=== PATIENT | female | born 1995 | race Caucasian/White ===

== ENCOUNTER → 2024-06-07 | Outpatient (CLI) | payer BC ==
[2024-06-07 11:05] LABS: Basophils # (auto) 0.1 10 ^3/uL (0-0.2); Basophils % (auto) 0.5 % (0.0-2.0); Eosinophils # (auto) 0 10 ^3/uL (0-0.8); Eosinophils % (auto) 0.4 % (0.0-7.0); Hematocrit 38.9 % (36.0-46.0); Hemoglobin 13.1 g/dL (12.2-16.2); Lymphocytes % (auto) 16.2 % (10.0-50.0); Mean Corpuscular Hemoglobin 30.1 pg (28.0-32.0); Mean Corpuscular Hgb Conc. 33.6 g/dL (32.0-36.0); Mean Corpuscular Volume 89.6 fL (80.0-100.0); Monocytes # (auto) 0.7 10 ^3/uL (0-1.3); Monocytes % (auto) 5.7 % (0.0-12.0); Neutrophils # (auto) 9.3 10 ^3/uL (1.6-8.6); Neutrophils % (auto) 77.2 % (37.0-80.0); Platelet Count (auto) 396 10^3/uL (140-450); Red Blood Cells 4.35 10^6/uL (4.0-5.20); Red Cell Distribution Width 13.1 % (11.8-14.3); White Blood Cell 12.1 10^3/uL (4.4-10.8)
[2024-06-07 11:49] LABS: Amphetamine Screen, Urine Neg (NEGATIVE)
[2024-06-07 11:50] LABS: Barbiturate Scree,Urine Neg (NEGATIVE)
[2024-06-07 11:52] LABS: Benzodiazephine Screen, Urine Neg (NEGATIVE); Cannabinoid Screen, Urine Neg (NEGATIVE); Cocaine Screen, Urine Neg (NEGATIVE); Opiate Scree,Urine Neg (NEGATIVE); Phencyclidine Screen, Urine Neg (NEGATIVE)
[2024-06-08 06:07] LABS: RPR Non Reactive (Non Reactive)
== END | disposition home or self-care (01) ==
LOC: LAB 10:22
PROVIDERS: ATTEND Obstetrics & Gynecology
DX: Z34.90 Encounter for supervision of normal pregnancy, unspecified, unspecified trimester (principal); Z72.51 High risk heterosexual behavior; Z3A.00 Weeks of gestation of pregnancy not specified
CPT/HCPCS: 36415; 80307; 83036; 84144; 84702; 85025; 86592; 86703; 86762; 86850; 86900; 86901; 87086; 87340

== ENCOUNTER 2025-01-02 18:20 | Inpatient (IN) | payer BC ==
[~2025-01-02] VITALS: Ht 160 cm; Wt 71.2 kg
[2025-01-02] MEDS ORDERED: LIDOCAINE 2%HCL (LOCAL ANESTH.) INJ 20ML MDV IJ PRN (19:15)
[2025-01-02] MEDS: LACTATED RINGER'S 1,000 ML IV SCH (20:00)
[2025-01-02 20:04] LABS: Hematocrit 36.7 % (36.0-46.0); Hemoglobin 12.6 g/dL (12.2-16.2); Mean Corpuscular Hemoglobin 31.1 pg (28.0-32.0); Mean Corpuscular Volume 90.6 fL (80.0-100.0); Nucleated Red Blood Cells % 0.0 %
[2025-01-02 20:24] LABS: INR 0.96 (0.9-1.15); Partial Thromboplastin Time 28.8 SEC (24.5-34.5); Prothrombin Time 10.2 sec (9.3-11.8)
[2025-01-02 20:29] LABS: Alanine Aminotransferase 10 U/L (7-40); Anion Gap 10 (5-15); BUN/Creatinine Ratio 10.7 (10.0-20.0); Calcium 9.5 mg/dL (8.7-10.4); Carbon Dioxide 26 mmol/L (20-31); Glucose 78 mg/dL (74-106); Potassium 4.0 mmol/L (3.5-5.1); Total Protein 7.1 g/dL (5.7-8.2)
[2025-01-02 20:30] LABS: Albumin 4.2 g/dL (3.2-4.8); Bilirubin, Total 0.3 mg/dL (0.2-1.0)
[2025-01-02 20:34] LABS: Alkaline Phosphatase 263 U/L (46-116); Blood Urea Nitrogen 6 mg/dL (9-23); Chloride 98 mmol/L (98-107); Sodium 134 mmol/L (136-145)
[2025-01-02 20:50] LABS: Urine Protein, UAD Negative (Negative)
[2025-01-02 21:05] LABS: Amphetamine Screen, Urine Neg (NEGATIVE); Barbiturate Scree,Urine Neg (NEGATIVE); Benzodiazephine Screen, Urine Neg (NEGATIVE); Cannabinoid Screen, Urine Neg (NEGATIVE); Cocaine Screen, Urine Neg (NEGATIVE); Opiate Scree,Urine Neg (NEGATIVE); Phencyclidine Screen, Urine Neg (NEGATIVE)
[2025-01-02] MEDS: DERMOPLAST 60ML BOTTLE TOP PRN (21:17)
[2025-01-02] MEDS: PHISODERM TOP SOLN 240ML BTL TOP PRN (21:17)
[2025-01-02] MEDS: WITCH HAZEL-GLYCERIN PAD TOP PRN (21:17)
[2025-01-02] MEDS: CALCIUM CARB 500 MG CHEW TAB PO PRN (21:39)
--- NOTE | 2025-01-02 21:49 | DVHHP2 ---
OB CC & HPI Date Date of Admission: Jan 02, 2025 Patient Identification: : 1 Para: 0 EDC: Dec 31, 2024 EGA: 40.2 Chief Complaints: Reason for admission: induction of labor Indication for induction: post dates History of Present Complaints 29yo IUP@40.2wks presents for scheduled IOL for post dates. Denies UC's/LOF/VB/DEGROOT/vision changes/RUQ pain. Endorses +FM. PNC: Routine PNC at [facility] OB by Dr. Sellers, adequate visits, uncomplicated GTT wnl, dating based on 10wk sono, GBS negative. OB hx: Denies Past Medical History Cardiac: No pertinent Hx Pulmonary: No pertinent Hx Central Nervous System: No pertinent Hx GI: No pertinent Hx Hemotology/Oncology: No pertinent Hx Hepatobiliary: No pertinent Hx Psychiatric: No pertinent Hx Musculoskeletal: No pertinent Hx Rheumotologic: No pertinent Hx Infectious Disease: No peritnent Hx ENT: No pertinent Hx Renal/: No pertinent Hx Endocrine: No pertinent Hx Dermatology: No pertinent Hx Past Surgical History: No pertinent Hx OB History OB History Care: Good Care Ultrasounds: Normal mid trimester US Obstetrical Complications: None Medical Complications: None Allergies: Coded Allergies: NO KNOWN ALLERGIES (Unverified , 01/02/25) Home Meds PNV Current Medications Current Medications Medications (Trade) Dose Ordered Sig/Gabrielle Route PRN Reason Start Time Stop Time Status Last Admin Lactated Ringer's 1,000 ml @ 125 mls/hr Q8H IV 01/02/25 19:15 Witch Pretty (Tucks) 1 pad PRN PRN TOP PERINEAL AREA DISCOMFORT 01/02/25 19:15 01/02/25 21:17 Sodium Lauryl Sulfate (Phisoderm) 240 ml PRN PRN TOP PERINEAL AREA DISCOMFORT 01/02/25 19:15 01/02/25 21:17 Benzocaine (Dermoplast) 1 applic PRN PRN TOP PERINEAL AREA DISCOMFORT 01/02/25 19:15 01/02/25 21:17 Lidocaine HCl (Xylocaine) 40 ml ONCE PRN IJ PERINEAL AREA DISCOMFORT 01/02/25 19:15 Misoprostol (Cytotec) 50 mcg Q4HPRN PRN PO CERVICAL RIPENING 01/02/25 20:30 01/02/25 21:16 Famotidine (Pepcid Injection) 20 mg Q12HR PRN IV FOR STOMACH DISTRESS 01/02/25 21:15 Calcium Carbonate (Tums) 1,000 mg Q6HP PRN PO FOR STOMACH DISTRESS 01/02/25 21:15 Family & Social History Family/Social History Past Family/Social History: Denies Blood Type: A+ Rubella: immune RPR/VDRL: Negative GBS Status: Negative HBsAG: Negative Review of Systems Constitutional: No symptom reported Ears, Nose, & Throat: No symptom reported Eyes: No symptom reported Pulmonary/Respiratory: No symptom reported Cardiovascular: No symptom reported Gastrointestinal: No symptom reported Genitourinary: No symptom reported Musculoskeletal: No symptom reported Skin: No symptom reported Psychiatric: No symptom reported Endocrine: No symptom reported Hemotologic/Lymphatic: No symptom reported OB Admission Exam Physical Exam Vitals: VSS - See CPN EFW 8lb 9oz, in OB clinic today SVE - Ft/thick/high by RN HEENT: TMs Normal, Fontanelles Normal, Nasal Mucosa Normal, Eyes non-injected, Oropharynx Normal, PERRLA, Moist Membranes, EOMI Heart: Rhythm Normal Lungs: Clear Abdomen: Gravid Extremities: Normal Reflexes: Normal Membranes: Intact Heart Rate: 120's Accelerations: Accelerations Present Decelerations: No Decelerations Business Process Consultant Variability: Average (6-25) Contractions on Admission: 6-10 Minutes Apart Frequency of Contractions: Q6-7min Duration: 100 Intensity: Mild OB Plan Plan Admitting Diagnosis: Induction of Labor Plan: Induction Induction Methd: Misoprostol protocol Other Plan: A: 29yo IUP@40.2wks Induction of Labor for post dates Category I EFM Intact Membranes GBS negative P: Admit to L&D Informed consent obtained Discussed risks, benefits, alternatives of IOL for post dates with pt. Pt consents to IOL with cytotec. monitoring per order Routine labs ordered Pain mgmt PRN Frequent position changes in and out of bed encouraged Limit SVE unless necessary Intrauterine resuscitation PRN Anticipate CNM will consult with Dr. Sellers PRN Visit Coding OBGYN Date of Service: Jan 02, 2025 Billing Provider: CELE BOWMAN CNM WATER PROJECT MANAGER Common Visit Codes: [id number] OBS CARE (MOD) WATER PROJECT MANAGER Procedure Codes: 59149-41- NON-STRESS TEST JENIFER SILVESTRE STUDENTMDW Jan 02, 2025 21:49
[2025-01-03] MEDS: FAMOTIDINE (10MG/ML) 2ML VL IV PRN (00:39)
--- NOTE | 2025-01-03 06:56 | DVHPN2 ---
Chief Complaints Patient reports: No new complaints Nursing reports: No new complaints Objective Medications Current Medications Medications (Trade) Dose Ordered Sig/Gabrielle Route PRN Reason Start Time Stop Time Status Last Admin Benzocaine (Dermoplast) 1 applic PRN PRN TOP PERINEAL AREA DISCOMFORT 01/02/25 19:15 01/02/25 21:17 Calcium Carbonate (Tums) 1,000 mg Q6HP PRN PO FOR STOMACH DISTRESS 01/02/25 21:15 01/03/25 03:13 Famotidine (Pepcid Injection) 20 mg Q12HR PRN IV FOR STOMACH DISTRESS 01/02/25 21:15 01/03/25 00:39 Lactated Ringer's 1,000 ml @ 125 mls/hr Q8H IV 01/02/25 19:15 01/02/25 20:00 Lidocaine HCl (Xylocaine) 40 ml ONCE PRN IJ PERINEAL AREA DISCOMFORT 01/02/25 19:15 Misoprostol (Cytotec) 50 mcg Q4HPRN PRN PO CERVICAL RIPENING 01/02/25 20:30 01/03/25 05:15 Sodium Lauryl Sulfate (Phisoderm) 240 ml PRN PRN TOP PERINEAL AREA DISCOMFORT 01/02/25 19:15 01/02/25 21:17 Witch Pretty (Tucks) 1 pad PRN PRN TOP PERINEAL AREA DISCOMFORT 01/02/25 19:15 01/02/25 21:17 Others ve-1cm/50/-2 Studies Laboratory Tests 01/02/25 19:24 Test 01/02/25 19:24 Range/Units Serum Glucose 78 74-106 mg/dL Ass/Plan Assessment iol for postdates Plan rec 2 cytotec Visit Coding OBGYN Date of Service: Jan 03, 2025 Billing Provider: RAZ GUADARRAMA DO JAVA DESIGNER Common Visit Codes: [id number] INP/OBS CARE (HIGH) JAVA DESIGNER Procedure Codes: 54475-54- NON-STRESS TEST RAZ GUADARRAMA DO Jan 03, 2025 06:56
[2025-01-03] MEDS: LACT. RINGERS/OXYTOCIN 20UNITS 500 ML IV ONE ×2 (07:00→07:30)
--- NOTE | 2025-01-03 09:56 | DVHPN2 ---
Chief Complaints Patient reports: No new complaints Nursing reports: No new complaints Objective Medications Current Medications Medications (Trade) Dose Ordered Sig/Gabrielle Route PRN Reason Start Time Stop Time Status Last Admin Benzocaine (Dermoplast) 1 applic PRN PRN TOP PERINEAL AREA DISCOMFORT 01/02/25 19:15 01/02/25 21:17 Calcium Carbonate (Tums) 1,000 mg Q6HP PRN PO FOR STOMACH DISTRESS 01/02/25 21:15 01/03/25 03:13 Famotidine (Pepcid Injection) 20 mg Q12HR PRN IV FOR STOMACH DISTRESS 01/02/25 21:15 01/03/25 00:39 Lactated Ringer's 1,000 ml @ 125 mls/hr Q8H IV 01/02/25 19:15 01/02/25 20:00 Lidocaine HCl (Xylocaine) 40 ml ONCE PRN IJ PERINEAL AREA DISCOMFORT 01/02/25 19:15 Misoprostol (Cytotec) 50 mcg Q4HPRN PRN PO CERVICAL RIPENING 01/02/25 20:30 01/03/25 09:16 Sodium Lauryl Sulfate (Phisoderm) 240 ml PRN PRN TOP PERINEAL AREA DISCOMFORT 01/02/25 19:15 01/02/25 21:17 Witch Pretty (Tucks) 1 pad PRN PRN TOP PERINEAL AREA DISCOMFORT 01/02/25 19:15 01/02/25 21:17 Others ve-1cm/70/-2 Studies Laboratory Tests 01/02/25 19:24 Test 01/02/25 19:24 Range/Units Serum Glucose 78 74-106 mg/dL Ass/Plan Assessment iol for postdates Plan cont with cytotec Visit Coding OBGYN Date of Service: Jan 03, 2025 Billing Provider: RAZ GUADARRAMA DO SUPERVISOR COIN MACHINE Common Visit Codes: [id number] INP/OBS CARE(MOD), [id number] INP/OBS CARE(HIGH) SUPERVISOR COIN MACHINE Procedure Codes: 44377-64- NON-STRESS TEST RAZ GUADARRAMA DO Jan 03, 2025 09:56
[2025-01-03] MEDS: NALOXONE HCL 0.4 MG/ML VIAL IV ONE (12:30)
[2025-01-03] MEDS: ROPIVACAINE HCL 100 ML ONE ×2 (13:11→20:32)
--- NOTE | 2025-01-03 13:37 | DVHPN2 ---
Chief Complaints Patient reports: No new complaints Nursing reports: No new complaints Objective Medications Current Medications Medications (Trade) Dose Ordered Sig/Gabrielle Route PRN Reason Start Time Stop Time Status Last Admin Benzocaine (Dermoplast) 1 applic PRN PRN TOP PERINEAL AREA DISCOMFORT 01/02/25 19:15 01/02/25 21:17 Calcium Carbonate (Tums) 1,000 mg Q6HP PRN PO FOR STOMACH DISTRESS 01/02/25 21:15 01/03/25 03:13 Famotidine (Pepcid Injection) 20 mg Q12HR PRN IV FOR STOMACH DISTRESS 01/02/25 21:15 01/03/25 00:39 Lactated Ringer's 1,000 ml @ 125 mls/hr Q8H IV 01/02/25 19:15 01/03/25 13:10 Lidocaine HCl (Xylocaine) 40 ml ONCE PRN IJ PERINEAL AREA DISCOMFORT 01/02/25 19:15 Misoprostol (Cytotec) 50 mcg Q4HPRN PRN PO CERVICAL RIPENING 01/02/25 20:30 01/03/25 13:30 Sodium Lauryl Sulfate (Phisoderm) 240 ml PRN PRN TOP PERINEAL AREA DISCOMFORT 01/02/25 19:15 01/02/25 21:17 Witch Pretty (Tucks) 1 pad PRN PRN TOP PERINEAL AREA DISCOMFORT 01/02/25 19:15 01/02/25 21:17 Others ve- 1cm/70/-2 Studies Laboratory Tests 01/02/25 19:24 Test 01/02/25 19:24 Range/Units Serum Glucose 78 74-106 mg/dL Ass/Plan Assessment iol for postdates Plan rec 4 cytotec will give one more rec epidural Visit Coding OBGYN Date of Service: Jan 03, 2025 Billing Provider: RAZ GUADARRAMA DO BUILD AND RELEASE MANAGER Common Visit Codes: [id number] INP/OBS CARE (HIGH) BUILD AND RELEASE MANAGER Procedure Codes: 79175-86- NON-STRESS TEST RAZ GUADARRAMA DO Jan 03, 2025 13:37
--- NOTE | 2025-01-03 16:08 | DVHPN2 ---
OB Labor Progress Note Date and Time Seen Date Seen: Jan 03, 2025 Time Seen: 15:40 Subjective Patient reports: No new complaints Subjective Comment 29 yo @ 40.3 wk, feeling better with epidural and agree to cook balloon placement. Objective Vital Signs VSS see CPN Monitoring Method Monitoring Method: Internal Heart Rate Heart Rate Baseline: 140 Heart Rate Variability: Moderate Presence of FHR Accelerations: Yes Presence of FHR Decelerations: Yes Heart Rate Type of Decel: Late Decelerations ( decel while balloon was being placed) Changes in Trends of Patterns: No Are all 5 Components of the FH: No Contractions Contractions Frequency: Occasional (3/10, 70-100) Duration of Contraction: 70 Contractions Intensity: Mild Contractions Resting Tone: Relaxed Membranes Membranes: Intact Vaginal Exam Vag Exam Deferred: No Vaginal Exam Dilation: 1 Vaginal Exam Effacement: 70 Vaginal Exam Station: -2 Vaginal Exam Presentation: VTX Vaginal Exam Show: Small Medications Medications - Pitocin: No Medication - Epidural: Yes Medication - Other s/p cytotec x 5 Lab Results Lab Results Current Medications Medications (Trade) Dose Ordered Sig/Gabrielle Start Time Stop Time Status Last Admin Dose Admin Lactated Ringer's 1,000 ml @ 125 mls/hr Q8H 01/02/25 19:15 01/03/25 13:36 125 MLS/HR Jose Bakerel (Tucks) 1 pad PRN PRN 01/02/25 19:15 01/02/25 21:17 1 PAD Sodium Lauryl Sulfate (Phisoderm) 240 ml PRN PRN 01/02/25 19:15 01/02/25 21:17 240 ML Benzocaine (Dermoplast) 1 applic PRN PRN 01/02/25 19:15 01/02/25 21:17 1 APPLIC Lidocaine HCl (Xylocaine) 40 ml ONCE PRN 01/02/25 19:15 Oxytocin 500 ml @ 999 mls/hr Q31M ONCE 01/03/25 07:00 01/03/25 07:30 DC Oxytocin 500 ml @ 125 mls/hr Q4H ONCE 01/03/25 07:30 01/03/25 11:29 DC Misoprostol (Cytotec) 50 mcg Q4HPRN PRN 01/02/25 20:30 01/03/25 13:30 50 MCG Famotidine (Pepcid Injection) 20 mg Q12HR PRN 01/02/25 21:15 01/03/25 00:39 20 MG Calcium Carbonate (Tums) 1,000 mg Q6HP PRN 01/02/25 21:15 01/03/25 03:13 1,000 MG Naloxone HCl (Narcan) 0.2 mg PRN ONCE 01/03/25 12:30 01/03/25 12:47 DC Ephedrine Sulfate (ePHEDrine SULFATE) 10 mg PRN ONCE 01/03/25 12:30 01/03/25 12:47 DC Oxytocin 1,000 ml @ 6 ml/hr Q24H 01/03/25 16:45 Terbutaline Sulfate (Brethine Inj) 0.25 mg ONCE PRN 01/03/25 16:45 Ondansetron HCl (Zofran) 4 mg Q4HPRN PRN 01/03/25 17:15 01/03/25 17:25 4 MG Laboratory Tests Test 01/02/25 19:24 01/02/25 19:07 Range/Units White Blood Count 15.7 H 4.4-10.8 10^3/uL Red Blood Count 4.05 4.0-5.20 10^6/uL Hemoglobin 12.6 12.2-16.2 g/dL Hematocrit 36.7 36.0-46.0 % Mean Corpuscular Volume 90.6 80.0-100.0 fL Mean Corpuscular Hemoglobin 31.1 28.0-32.0 pg Mean Corpuscular Hemoglobin Concent 34.3 32.0-36.0 g/dL Red Cell Distribution Width 13.0 11.8-14.3 % Platelet Count 303 140-450 10^3/uL Mean Platelet Volume 7.7 6.9-10.8 fL Neutrophils (%) (Auto) 75.7 37.0-80.0 % Lymphocytes (%) (Auto) 17.8 10.0-50.0 % Monocytes (%) (Auto) 5.9 0.0-12.0 % Eosinophils (%) (Auto) 0.3 0.0-7.0 % Basophils (%) (Auto) 0.3 0.0-2.0 % Neutrophils # (Auto) 11.9 H 1.6-8.6 10 ^3/uL Lymphocytes # (Auto) 2.8 0.4-5.4 10 ^3/uL Monocytes # (Auto) 0.9 0-1.3 10 ^3/uL Eosinophils # (Auto) 0.1 0-0.8 10 ^3/uL Basophils # (Auto) 0 0-0.2 10 ^3/uL Nucleated Red Blood Cells 0.0 % Prothrombin Time 10.2 9.3-11.8 sec Prothrombin Time INR 0.96 0.9-1.15 Activated Partial Thromboplast Time 28.8 24.5-34.5 SEC Sodium Level 134 L 136-145 mmol/L Potassium Level 4.0 3.5-5.1 mmol/L Chloride Level 98 98-107 mmol/L Carbon Dioxide Level 26 20-31 mmol/L Anion Gap 10 5-15 Blood Urea Nitrogen 6 L 9-23 mg/dL Creatinine 0.56 0.550-1.02 mg/dL Glomerular Filtration Rate Calc 125 >90 mL/min BUN/Creatinine Ratio 10.7 10.0-20.0 Serum Glucose 78 74-106 mg/dL Calcium Level 9.5 8.7-10.4 mg/dL Total Bilirubin 0.3 0.2-1.0 mg/dL Aspartate Amino Transferase (AST) 24 13-40 U/L Alanine Aminotransferase (ALT) 10 7-40 U/L Alkaline Phosphatase 263 H 46-116 U/L Total Protein 7.1 5.7-8.2 g/dL Albumin 4.2 3.2-4.8 g/dL Treponema pallidum Antibody Non-reactive Negative Hepatitis C Antibody Negative Negative Urine Color Colorless Yellow Urine Clarity Clear Clear Urine pH 5.5 5.0-9.0 Urine Specific [place] 1.008 1.001-1.035 Urine Protein Negative Negative Urine Ketones 1+ H Negative Urine Blood Negative Negative /uL Urine Nitrite Negative Negative Urine Bilirubin Negative Negative Urine Urobilinogen Normal Negative mg/dL Urine Leukocyte Esterase Negative Negative /uL Urine RBC 1 0 - 4 /hpf Urine Microscopic WBC 1 0-5 /HPF Urine Squamous Epithelial Cells Few <5 /hpf Urine Bacteria None seen None Seen /hpf Urine Glucose Normal Normal mg/dL Urine Opiates Screen Neg NEGATIVE Urine Fentanyl Screen Neg NEGATIVE Urine Barbiturates Screen Neg NEGATIVE Urine Phencyclidine Screen Neg NEGATIVE Urine Amphetamines Screen Neg NEGATIVE Urine Benzodiazepines Screen Neg NEGATIVE Urine Cocaine Screen Neg NEGATIVE Urine Cannabinoids Screen Neg NEGATIVE Assessment Assessment A: 29yo at 40.3 wk IOL for Postdates GBS negative Cat 2 strip Intact membranes Plan Plan P: monitoring per order IV pitocin after 4 hours post cytotec Remove cook balloon after 12 hours or prior if SROM or spontaneously falls out Intrauterine resuscitation PRN Encourage frequent position changes in bed Plan discussed with: Patient, Spouse Visit Coding OBGYN Date of Service: Jan 03, 2025 Billing Provider: CELE BOWMAN CNM GLUE REEL OPERATOR Common Visit Codes: [id number] INP/OBS CARE(MOD) MARIO BROWN Jan 03, 2025 16:08
[2025-01-03] MEDS ORDERED: TERBUTALINE SULFATE 1 MG/ML 1ML VIAL SC PRN (16:45)
[2025-01-03] MEDS: ONDANSETRON HCL 4 MG/2 ML VIAL IV PRN (17:25)
--- NOTE | 2025-01-03 20:10 | DVHPN2 ---
OB Labor Progress Note Date and Time Seen Date Seen: Jan 03, 2025 Time Seen: 19:35 Subjective Patient reports: No new complaints Subjective Comment 29yo @ 40.3wk, feels warm, ice pack under arm and between thigh, epidural in place Objective Vital Signs VSS see CPN Monitoring Method Monitoring Method: External Heart Rate Heart Rate Baseline: 145 Heart Rate Variability: Moderate Presence of FHR Accelerations: Yes Presence of FHR Decelerations: No Are all 5 Components of the FH: No Contractions Contractions Frequency: Occasional (1-3/10) Duration of Contraction: 80 Contractions Intensity: Moderate Contractions Resting Tone: Relaxed Membranes Membranes: Intact Vaginal Exam Vag Exam Deferred: No Vaginal Exam Dilation: 5 Vaginal Exam Effacement: 70 Vaginal Exam Station: -2 Vaginal Exam Presentation: VTX Vaginal Exam Show: Small Medications Medications - Pitocin: No Medication - Epidural: Yes Medication - Other s/p PO cytotec x 5 Lab Results Lab Results Current Medications Medications (Trade) Dose Ordered Sig/Gabrielle Start Time Stop Time Status Last Admin Dose Admin Lactated Ringer's 1,000 ml @ 125 mls/hr Q8H 01/02/25 19:15 01/03/25 13:36 125 MLS/HR Witch Pretty (Tucks) 1 pad PRN PRN 01/02/25 19:15 01/02/25 21:17 1 PAD Sodium Lauryl Sulfate (Phisoderm) 240 ml PRN PRN 01/02/25 19:15 01/02/25 21:17 240 ML Benzocaine (Dermoplast) 1 applic PRN PRN 01/02/25 19:15 01/02/25 21:17 1 APPLIC Lidocaine HCl (Xylocaine) 40 ml ONCE PRN 01/02/25 19:15 Oxytocin 500 ml @ 999 mls/hr Q31M ONCE 01/03/25 07:00 01/03/25 07:30 DC Oxytocin 500 ml @ 125 mls/hr Q4H ONCE 01/03/25 07:30 01/03/25 11:29 DC Misoprostol (Cytotec) 50 mcg Q4HPRN PRN 01/02/25 20:30 01/03/25 13:30 50 MCG Famotidine (Pepcid Injection) 20 mg Q12HR PRN 01/02/25 21:15 01/03/25 00:39 20 MG Calcium Carbonate (Tums) 1,000 mg Q6HP PRN 01/02/25 21:15 01/03/25 03:13 1,000 MG Naloxone HCl (Narcan) 0.2 mg PRN ONCE 01/03/25 12:30 01/03/25 12:47 DC Ephedrine Sulfate (ePHEDrine SULFATE) 10 mg PRN ONCE 01/03/25 12:30 01/03/25 12:47 DC Oxytocin 1,000 ml @ 6 ml/hr Q24H 01/03/25 16:45 Terbutaline Sulfate (Brethine Inj) 0.25 mg ONCE PRN 01/03/25 16:45 Ondansetron HCl (Zofran) 4 mg Q4HPRN PRN 01/03/25 17:15 01/03/25 17:25 4 MG Acetaminophen (Tylenol Tablet Or Capsule) 1,000 mg Q8HP PRN 01/03/25 19:45 UNV Laboratory Tests Test 01/02/25 19:24 01/02/25 19:07 Range/Units White Blood Count 15.7 H 4.4-10.8 10^3/uL Red Blood Count 4.05 4.0-5.20 10^6/uL Hemoglobin 12.6 12.2-16.2 g/dL Hematocrit 36.7 36.0-46.0 % Mean Corpuscular Volume 90.6 80.0-100.0 fL Mean Corpuscular Hemoglobin 31.1 28.0-32.0 pg Mean Corpuscular Hemoglobin Concent 34.3 32.0-36.0 g/dL Red Cell Distribution Width 13.0 11.8-14.3 % Platelet Count 303 140-450 10^3/uL Mean Platelet Volume 7.7 6.9-10.8 fL Neutrophils (%) (Auto) 75.7 37.0-80.0 % Lymphocytes (%) (Auto) 17.8 10.0-50.0 % Monocytes (%) (Auto) 5.9 0.0-12.0 % Eosinophils (%) (Auto) 0.3 0.0-7.0 % Basophils (%) (Auto) 0.3 0.0-2.0 % Neutrophils # (Auto) 11.9 H 1.6-8.6 10 ^3/uL Lymphocytes # (Auto) 2.8 0.4-5.4 10 ^3/uL Monocytes # (Auto) 0.9 0-1.3 10 ^3/uL Eosinophils # (Auto) 0.1 0-0.8 10 ^3/uL Basophils # (Auto) 0 0-0.2 10 ^3/uL Nucleated Red Blood Cells 0.0 % Prothrombin Time 10.2 9.3-11.8 sec Prothrombin Time INR 0.96 0.9-1.15 Activated Partial Thromboplast Time 28.8 24.5-34.5 SEC Sodium Level 134 L 136-145 mmol/L Potassium Level 4.0 3.5-5.1 mmol/L Chloride Level 98 98-107 mmol/L Carbon Dioxide Level 26 20-31 mmol/L Anion Gap 10 5-15 Blood Urea Nitrogen 6 L 9-23 mg/dL Creatinine 0.56 0.550-1.02 mg/dL Glomerular Filtration Rate Calc 125 >90 mL/min BUN/Creatinine Ratio 10.7 10.0-20.0 Serum Glucose 78 74-106 mg/dL Calcium Level 9.5 8.7-10.4 mg/dL Total Bilirubin 0.3 0.2-1.0 mg/dL Aspartate Amino Transferase (AST) 24 13-40 U/L Alanine Aminotransferase (ALT) 10 7-40 U/L Alkaline Phosphatase 263 H 46-116 U/L Total Protein 7.1 5.7-8.2 g/dL Albumin 4.2 3.2-4.8 g/dL Treponema pallidum Antibody Non-reactive Negative Hepatitis C Antibody Negative Negative Urine Color Colorless Yellow Urine Clarity Clear Clear Urine pH 5.5 5.0-9.0 Urine Specific [place] 1.008 1.001-1.035 Urine Protein Negative Negative Urine Ketones 1+ H Negative Urine Blood Negative Negative /uL Urine Nitrite Negative Negative Urine Bilirubin Negative Negative Urine Urobilinogen Normal Negative mg/dL Urine Leukocyte Esterase Negative Negative /uL Urine RBC 1 0 - 4 /hpf Urine Microscopic WBC 1 0-5 /HPF Urine Squamous Epithelial Cells Few <5 /hpf Urine Bacteria None seen None Seen /hpf Urine Glucose Normal Normal mg/dL Urine Opiates Screen Neg NEGATIVE Urine Fentanyl Screen Neg NEGATIVE Urine Barbiturates Screen Neg NEGATIVE Urine Phencyclidine Screen Neg NEGATIVE Urine Amphetamines Screen Neg NEGATIVE Urine Benzodiazepines Screen Neg NEGATIVE Urine Cocaine Screen Neg NEGATIVE Urine Cannabinoids Screen Neg NEGATIVE Assessment Assessment A: 29yo, @ 40.3wk IOL for postdates Intact Membranes GBS negative Plan Plan P: monitoring per order IV pitocin to be started when UC spaces out, pt agrees with POC Intrauterine resuscitation PRN Limit SVE unless necessary Frequent position changes in bed encouraged Plan discussed with: Patient, Spouse Visit Coding OBGYN Date of Service: Jan 03, 2025 Billing Provider: CELE BOWMAN CNM KNIFE SETTER Common Visit Codes: [id number] INP/OBS CARE(MOD) MARIO BROWN Jan 03, 2025 20:10
[2025-01-03] MEDS: ACETAMINOPHEN 500 MG TAB or CAP PO PRN (20:23)
[2025-01-03] MEDS: LACT. RINGERS/OXYTOCIN 20UNITS 1,000 ML IV SCH (20:46)
[2025-01-04] VITALS (11 sets, daily range): BP systolic 96–112; BP diastolic 1–74; PULSE 95–119; RESP 14–26; TEMP 98.8–100.4; O2SAT 7–100
--- NOTE | 2025-01-04 01:15 | DVHPN2 ---
OB Labor Progress Note Date and Time Seen Date Seen: Jan 03, 2025 Time Seen: 23:30 Subjective Patient reports: No new complaints (temp getting better) Objective Vital Signs VSS see CPN Monitoring Method Monitoring Method: External Heart Rate Heart Rate Baseline: 135 Heart Rate Variability: Moderate Presence of FHR Accelerations: Yes Presence of FHR Decelerations: Yes ( decel when pt repositions) Changes in Trends of Patterns: No Are all 5 Components of the FH: No Contractions Contractions Frequency: Occasional (1.5-4/10) Duration of Contraction: 80 Contractions Intensity: Moderate Contractions Resting Tone: Relaxed Membranes Membranes: Intact, Bulging Vaginal Exam Vag Exam Deferred: No Vaginal Exam Dilation: 6 Vaginal Exam Effacement: 70 Vaginal Exam Station: -2 Vaginal Exam Presentation: VTX Vaginal Exam Show: Small Medications Medications - Pitocin: No (pitocin stopped) Medication - Epidural: Yes Medication - Other s/p PO cytotec x 5 Lab Results Lab Results Vital Signs Date Time Temp Pulse Resp B/P (MAP) Pulse Ox O2 Delivery O2 Flow Rate FiO2 01/03/25 20:23 100.3 Current Medications Medications (Trade) Dose Ordered Sig/Gabrielle Start Time Stop Time Status Last Admin Dose Admin Lactated Ringer's 1,000 ml @ 125 mls/hr Q8H 01/02/25 19:15 01/03/25 13:36 125 MLS/HR Witch Pretty (Tucks) 1 pad PRN PRN 01/02/25 19:15 01/02/25 21:17 1 PAD Sodium Lauryl Sulfate (Phisoderm) 240 ml PRN PRN 01/02/25 19:15 01/02/25 21:17 240 ML Benzocaine (Dermoplast) 1 applic PRN PRN 01/02/25 19:15 01/02/25 21:17 1 APPLIC Lidocaine HCl (Xylocaine) 40 ml ONCE PRN 01/02/25 19:15 Oxytocin 500 ml @ 999 mls/hr Q31M ONCE 01/03/25 07:00 01/03/25 07:30 DC Oxytocin 500 ml @ 125 mls/hr Q4H ONCE 01/03/25 07:30 01/03/25 11:29 DC Misoprostol (Cytotec) 50 mcg Q4HPRN PRN 01/02/25 20:30 01/03/25 13:30 50 MCG Famotidine (Pepcid Injection) 20 mg Q12HR PRN 01/02/25 21:15 01/03/25 00:39 20 MG Calcium Carbonate (Tums) 1,000 mg Q6HP PRN 01/02/25 21:15 01/03/25 03:13 1,000 MG Naloxone HCl (Narcan) 0.2 mg PRN ONCE 01/03/25 12:30 01/03/25 12:47 DC Ephedrine Sulfate (ePHEDrine SULFATE) 10 mg PRN ONCE 01/03/25 12:30 01/03/25 12:47 DC Oxytocin 1,000 ml @ 6 ml/hr Q24H 01/03/25 16:45 01/03/25 20:46 6 ML/HR Terbutaline Sulfate (Brethine Inj) 0.25 mg ONCE PRN 01/03/25 16:45 Ondansetron HCl (Zofran) 4 mg Q4HPRN PRN 01/03/25 17:15 01/03/25 17:25 4 MG Acetaminophen (Tylenol Tablet Or Capsule) 1,000 mg Q8HP PRN 01/03/25 19:45 01/03/25 20:23 1,000 MG Cefazolin Sodium/ Dextrose 50 ml @ 50 mls/hr ONCE ONCE 01/04/25 00:45 01/04/25 01:44 Cefazolin Sodium 50 ml @ 100 mls/hr Q8HR 01/04/25 09:00 Laboratory Tests Test 01/02/25 19:24 01/02/25 19:07 Range/Units White Blood Count 15.7 H 4.4-10.8 10^3/uL Red Blood Count 4.05 4.0-5.20 10^6/uL Hemoglobin 12.6 12.2-16.2 g/dL Hematocrit 36.7 36.0-46.0 % Mean Corpuscular Volume 90.6 80.0-100.0 fL Mean Corpuscular Hemoglobin 31.1 28.0-32.0 pg Mean Corpuscular Hemoglobin Concent 34.3 32.0-36.0 g/dL Red Cell Distribution Width 13.0 11.8-14.3 % Platelet Count 303 140-450 10^3/uL Mean Platelet Volume 7.7 6.9-10.8 fL Neutrophils (%) (Auto) 75.7 37.0-80.0 % Lymphocytes (%) (Auto) 17.8 10.0-50.0 % Monocytes (%) (Auto) 5.9 0.0-12.0 % Eosinophils (%) (Auto) 0.3 0.0-7.0 % Basophils (%) (Auto) 0.3 0.0-2.0 % Neutrophils # (Auto) 11.9 H 1.6-8.6 10 ^3/uL Lymphocytes # (Auto) 2.8 0.4-5.4 10 ^3/uL Monocytes # (Auto) 0.9 0-1.3 10 ^3/uL Eosinophils # (Auto) 0.1 0-0.8 10 ^3/uL Basophils # (Auto) 0 0-0.2 10 ^3/uL Nucleated Red Blood Cells 0.0 % Prothrombin Time 10.2 9.3-11.8 sec Prothrombin Time INR 0.96 0.9-1.15 Activated Partial Thromboplast Time 28.8 24.5-34.5 SEC Sodium Level 134 L 136-145 mmol/L Potassium Level 4.0 3.5-5.1 mmol/L Chloride Level 98 98-107 mmol/L Carbon Dioxide Level 26 20-31 mmol/L Anion Gap 10 5-15 Blood Urea Nitrogen 6 L 9-23 mg/dL Creatinine 0.56 0.550-1.02 mg/dL Glomerular Filtration Rate Calc 125 >90 mL/min BUN/Creatinine Ratio 10.7 10.0-20.0 Serum Glucose 78 74-106 mg/dL Calcium Level 9.5 8.7-10.4 mg/dL Total Bilirubin 0.3 0.2-1.0 mg/dL Aspartate Amino Transferase (AST) 24 13-40 U/L Alanine Aminotransferase (ALT) 10 7-40 U/L Alkaline Phosphatase 263 H 46-116 U/L Total Protein 7.1 5.7-8.2 g/dL Albumin 4.2 3.2-4.8 g/dL Treponema pallidum Antibody Non-reactive Negative Hepatitis C Antibody Negative Negative Urine Color Colorless Yellow Urine Clarity Clear Clear Urine pH 5.5 5.0-9.0 Urine Specific [place] 1.008 1.001-1.035 Urine Protein Negative Negative Urine Ketones 1+ H Negative Urine Blood Negative Negative /uL Urine Nitrite Negative Negative Urine Bilirubin Negative Negative Urine Urobilinogen Normal Negative mg/dL Urine Leukocyte Esterase Negative Negative /uL Urine RBC 1 0 - 4 /hpf Urine Microscopic WBC 1 0-5 /HPF Urine Squamous Epithelial Cells Few <5 /hpf Urine Bacteria None seen None Seen /hpf Urine Glucose Normal Normal mg/dL Urine Opiates Screen Neg NEGATIVE Urine Fentanyl Screen Neg NEGATIVE Urine Barbiturates Screen Neg NEGATIVE Urine Phencyclidine Screen Neg NEGATIVE Urine Amphetamines Screen Neg NEGATIVE Urine Benzodiazepines Screen Neg NEGATIVE Urine Cocaine Screen Neg NEGATIVE Urine Cannabinoids Screen Neg NEGATIVE Assessment Assessment 29 yo IUP @ 40.3wk IOL for postdates GBS negative Intact membranes Cat 2 EFM Plan Plan P: monitoring per order Frequent position changes in bed encouraged Limit SVE unless necessary Intrauterine resuscitation PRN Anticipate CNM will consult with Dr. Sellers PRN Plan discussed with: Patient Visit Coding OBGYN Date of Service: Jan 03, 2025 Billing Provider: CELE BOWMAN CNM INDUSTRIAL [employer]S TEACHER Common Visit Codes: [id number] INP/OBS CARE(MOD) MARIO BROWN Jan 04, 2025 01:15
[2025-01-04] MEDS: ceFAZolin 2 GM/D5W50ml 50 ML IV ONE (02:07)
[2025-01-04] MEDS: ROPIVACAINE HCL 100 ML ONE ×3 (05:19→11:52)
--- NOTE | 2025-01-04 05:50 | DVHPN2 ---
OB Labor Progress Note Date and Time Seen Date Seen: Jan 04, 2025 Time Seen: 05:05 Subjective Patient reports: Other Subjective Comment No new complains but pt wants to be repositioned and checked Objective Vital Signs VSS see CPN Monitoring Method Monitoring Method: External Heart Rate Heart Rate Baseline: 140 Heart Rate Variability: Moderate Presence of FHR Accelerations: Yes Presence of FHR Decelerations: No Changes in Trends of Patterns: Yes Are all 5 Components of the FH: Yes Contractions Contractions Frequency: Occasional (2-4/10) Duration of Contraction: 80 Contractions Intensity: Moderate Membranes Membranes: Ruptured Amniotic Fluid Color: Part Mec Vaginal Exam Vag Exam Deferred: No Vaginal Exam Dilation: 7 Vaginal Exam Effacement: 70 Vaginal Exam Station: -2 Vaginal Exam Presentation: VTX Vaginal Exam Show: Moderate Medications Medications - Pitocin: Yes Medication - Epidural: Yes Medication - Other s/p cytotec x 5 Lab Results Lab Results Vital Signs Date Time Temp Pulse Resp B/P (MAP) Pulse Ox O2 Delivery O2 Flow Rate FiO2 01/03/25 20:23 100.3 Current Medications Medications (Trade) Dose Ordered Sig/Gabrielle Start Time Stop Time Status Last Admin Dose Admin Lactated Ringer's 1,000 ml @ 125 mls/hr Q8H 01/02/25 19:15 01/03/25 13:36 125 MLS/HR Witch Pretty (Tucks) 1 pad PRN PRN 01/02/25 19:15 01/02/25 21:17 1 PAD Sodium Lauryl Sulfate (Phisoderm) 240 ml PRN PRN 01/02/25 19:15 01/02/25 21:17 240 ML Benzocaine (Dermoplast) 1 applic PRN PRN 01/02/25 19:15 01/02/25 21:17 1 APPLIC Lidocaine HCl (Xylocaine) 40 ml ONCE PRN 01/02/25 19:15 Oxytocin 500 ml @ 999 mls/hr Q31M ONCE 01/03/25 07:00 01/03/25 07:30 DC Oxytocin 500 ml @ 125 mls/hr Q4H ONCE 01/03/25 07:30 01/03/25 11:29 DC Misoprostol (Cytotec) 50 mcg Q4HPRN PRN 01/02/25 20:30 01/03/25 13:30 50 MCG Famotidine (Pepcid Injection) 20 mg Q12HR PRN 01/02/25 21:15 01/03/25 00:39 20 MG Calcium Carbonate (Tums) 1,000 mg Q6HP PRN 01/02/25 21:15 01/03/25 03:13 1,000 MG Naloxone HCl (Narcan) 0.2 mg PRN ONCE 01/03/25 12:30 01/03/25 12:47 DC Ephedrine Sulfate (ePHEDrine SULFATE) 10 mg PRN ONCE 01/03/25 12:30 01/03/25 12:47 DC Oxytocin 1,000 ml @ 6 ml/hr Q24H 01/03/25 16:45 01/03/25 20:46 6 ML/HR Terbutaline Sulfate (Brethine Inj) 0.25 mg ONCE PRN 01/03/25 16:45 Ondansetron HCl (Zofran) 4 mg Q4HPRN PRN 01/03/25 17:15 01/03/25 17:25 4 MG Acetaminophen (Tylenol Tablet Or Capsule) 1,000 mg Q8HP PRN 01/03/25 19:45 01/03/25 20:23 1,000 MG Cefazolin Sodium/ Dextrose 50 ml @ 50 mls/hr ONCE ONCE 01/04/25 00:45 01/04/25 01:44 DC 01/04/25 02:07 50 MLS/HR Cefazolin Sodium 50 ml @ 100 mls/hr Q8HR 01/04/25 09:00 01/04/25 02:50 DC Cefazolin Sodium 50 ml @ 100 mls/hr Q8H 01/04/25 10:00 Laboratory Tests Test 01/02/25 19:24 01/02/25 19:07 Range/Units White Blood Count 15.7 H 4.4-10.8 10^3/uL Red Blood Count 4.05 4.0-5.20 10^6/uL Hemoglobin 12.6 12.2-16.2 g/dL Hematocrit 36.7 36.0-46.0 % Mean Corpuscular Volume 90.6 80.0-100.0 fL Mean Corpuscular Hemoglobin 31.1 28.0-32.0 pg Mean Corpuscular Hemoglobin Concent 34.3 32.0-36.0 g/dL Red Cell Distribution Width 13.0 11.8-14.3 % Platelet Count 303 140-450 10^3/uL Mean Platelet Volume 7.7 6.9-10.8 fL Neutrophils (%) (Auto) 75.7 37.0-80.0 % Lymphocytes (%) (Auto) 17.8 10.0-50.0 % Monocytes (%) (Auto) 5.9 0.0-12.0 % Eosinophils (%) (Auto) 0.3 0.0-7.0 % Basophils (%) (Auto) 0.3 0.0-2.0 % Neutrophils # (Auto) 11.9 H 1.6-8.6 10 ^3/uL Lymphocytes # (Auto) 2.8 0.4-5.4 10 ^3/uL Monocytes # (Auto) 0.9 0-1.3 10 ^3/uL Eosinophils # (Auto) 0.1 0-0.8 10 ^3/uL Basophils # (Auto) 0 0-0.2 10 ^3/uL Nucleated Red Blood Cells 0.0 % Prothrombin Time 10.2 9.3-11.8 sec Prothrombin Time INR 0.96 0.9-1.15 Activated Partial Thromboplast Time 28.8 24.5-34.5 SEC Sodium Level 134 L 136-145 mmol/L Potassium Level 4.0 3.5-5.1 mmol/L Chloride Level 98 98-107 mmol/L Carbon Dioxide Level 26 20-31 mmol/L Anion Gap 10 5-15 Blood Urea Nitrogen 6 L 9-23 mg/dL Creatinine 0.56 0.550-1.02 mg/dL Glomerular Filtration Rate Calc 125 >90 mL/min BUN/Creatinine Ratio 10.7 10.0-20.0 Serum Glucose 78 74-106 mg/dL Calcium Level 9.5 8.7-10.4 mg/dL Total Bilirubin 0.3 0.2-1.0 mg/dL Aspartate Amino Transferase (AST) 24 13-40 U/L Alanine Aminotransferase (ALT) 10 7-40 U/L Alkaline Phosphatase 263 H 46-116 U/L Total Protein 7.1 5.7-8.2 g/dL Albumin 4.2 3.2-4.8 g/dL Treponema pallidum Antibody Non-reactive Negative Hepatitis C Antibody Negative Negative Urine Color Colorless Yellow Urine Clarity Clear Clear Urine pH 5.5 5.0-9.0 Urine Specific [place] 1.008 1.001-1.035 Urine Protein Negative Negative Urine Ketones 1+ H Negative Urine Blood Negative Negative /uL Urine Nitrite Negative Negative Urine Bilirubin Negative Negative Urine Urobilinogen Normal Negative mg/dL Urine Leukocyte Esterase Negative Negative /uL Urine RBC 1 0 - 4 /hpf Urine Microscopic WBC 1 0-5 /HPF Urine Squamous Epithelial Cells Few <5 /hpf Urine Bacteria None seen None Seen /hpf Urine Glucose Normal Normal mg/dL Urine Opiates Screen Neg NEGATIVE Urine Fentanyl Screen Neg NEGATIVE Urine Barbiturates Screen Neg NEGATIVE Urine Phencyclidine Screen Neg NEGATIVE Urine Amphetamines Screen Neg NEGATIVE Urine Benzodiazepines Screen Neg NEGATIVE Urine Cocaine Screen Neg NEGATIVE Urine Cannabinoids Screen Neg NEGATIVE Assessment Assessment A: 29yo @ 40.4wk IOL for postdates SROM: thick meconium GBS negative Plan Plan P: monitoring per order Limit SVE unless necessary Intrauterine resuscitation PRN Frequent position changes in bed encouraged Plan discussed with: Patient Visit Coding OBGYN Date of Service: Jan 04, 2025 Billing Provider: CELE BOWMAN CNM C CONSULTANT Common Visit Codes: [id number] INP/OBS CARE(MOD) MARIO BROWN Jan 04, 2025 05:50
--- NOTE | 2025-01-04 06:52 | DVHPN2 ---
Chief Complaints Patient reports: No new complaints, Other Nursing reports: No new complaints Objective Vitals Vital Signs Date Time Temp Pulse Resp B/P (MAP) Pulse Ox O2 Delivery O2 Flow Rate FiO2 01/03/25 20:23 100.3 Medications Current Medications Medications (Trade) Dose Ordered Sig/Gabrielle Route PRN Reason Start Time Stop Time Status Last Admin Acetaminophen (Tylenol Tablet Or Capsule) 1,000 mg Q8HP PRN PO MILD PAIN (1-3 PAIN SCALE) 01/03/25 19:45 01/03/25 20:23 Cefazolin Sodium 50 ml @ 100 mls/hr Q8H IV 01/04/25 10:00 Ondansetron HCl (Zofran) 4 mg Q4HPRN PRN IV NAUSEA / VOMITING 01/03/25 17:15 01/03/25 17:25 Oxytocin 1,000 ml @ 6 ml/hr Q24H IV 01/03/25 16:45 01/03/25 20:46 Terbutaline Sulfate (Brethine Inj) 0.25 mg ONCE PRN SC Uterine tachysystole 01/03/25 16:45 Others ve-7cm/80/-2 Studies Laboratory Tests 01/02/25 19:24 Test 01/02/25 19:24 Range/Units Serum Glucose 78 74-106 mg/dL Ass/Plan Assessment iol for postdates in active labor Plan cont with pitocin Visit Coding OBGYN Date of Service: Jan 04, 2025 Billing Provider: RAZ GUADARRAMA DO LABORER G[employer]AF Common Visit Codes: [id number] OBS CARE (HIGH) LABORER [employer]AF Procedure Codes: [id number]- NON-STRESS TEST RAZ GUADARRAMA DO Jan 04, 2025 06:52
[2025-01-04] MEDS ORDERED: ceFAZolin 1GM/50ML 50 ML IV SCH (09:00)
[2025-01-04] MEDS: ceFAZolin 1GM/50ML 50 ML IV SCH (10:07)
--- NOTE | 2025-01-04 11:12 | DVHHP ---
ADMIT DATE: 01/04/2025 CHIEF COMPLAINT: Arrest of dilatation and descent, failure to progress, thick meconium. HISTORY OF PRESENT ILLNESS: The patient is a 29-year-old 1, para 0, with EDC 12/31, admitted for induction of labor. The patient had previously refused induction of labor. She was admitted at 40+ weeks for induction of labor. She received 4 Cytotec, followed by Pitocin. However, her amniotic fluid was noted this morning at approximately about 9 a.m. to be thick meconium, which previously was not, and the patient has not made much of progress, the cervix was noted to be 5 cm, -2, ischial bone appears to be prominent. Subsequently, decision was made to proceed with primary low transverse section. PAST MEDICAL HISTORY: None. PAST SURGICAL HISTORY: None. SOCIAL HISTORY: None. FAMILY HISTORY: None. LUMBER SALVAGER HISTORY: Primigravid. ALLERGIES: No known drug allergies. REVIEW OF SYSTEMS: Consistent with HPI. PHYSICAL EXAMINATION: VITAL SIGNS: Stable, afebrile. HEENT: Within normal limits. CARDIOVASCULAR: Regular rate and rhythm. LUNGS: Clear to auscultation. BREASTS: Symmetrical. No masses. ABDOMEN: Gravid. Positive heart. Estimated weight 8 pounds 9 ounces. PELVIC: 5 cm, -2. Swollen cervix anteriorly. EXTREMITIES: No clubbing, cyanosis, or edema. IMPRESSION: * Intrauterine at 40+ weeks, failed induction. * Failure to progress, arrest of descent and dilatation. * Thick meconium. PLAN: Primary low transverse section. Informed consent obtained. Risks and complications of surgery including infection, bleeding, hematoma formation, injury to bowel, bladder and surrounding organ, possibility of DVT, pulmonary embolism and risks of anesthesia were discussed with the patient. Options reviewed. All questions answered. The patient fully understands. She wishes to proceed with planned procedure. DO VICKI Chapman/MARGARITA TID: [id number] RECEIPT: [id number]
[2025-01-04] MEDS: LIDOCAINE 2% (LOCAL ANESTH.) PF 5ml SDV ONE (12:31)
[2025-01-04] MEDS ORDERED: fentaNYL CITRATE 100 MCG/2 ML VL ONE (12:36)
[2025-01-04] MEDS: LIDOCAINE W/ EPINEPHRINE 2% INJ 20ML VIAL ONE (12:43)
[2025-01-04] MEDS: LACT. RINGERS/OXYTOCIN 20UNITS 1,000 ML IV ONE (12:45)
[2025-01-04] MEDS ORDERED: ONDANSETRON HCL 4 MG/2 ML VIAL IV PRN ×2 (12:45→16:00)
[2025-01-04] MEDS: GUM (CHEWING) 1 GUM CHEW CHEW ONE (12:45)
[2025-01-04] MEDS ORDERED: LIDOCAINE 2% (LOCAL ANESTH.) PF 5ml SDV ONE (13:00)
[2025-01-04] MEDS ORDERED: MORPHINE SULF PF 5 MG/10 ML VIAL ONE (13:02)
[2025-01-04] MEDS: CARBOPROST TROMETHAMINE 250 MCG/1ML VIAL IM ONE (13:10)
[2025-01-04] MEDS ORDERED: LIDOCAINE HCL 100 MG/5ML (2%) SYRG INJ IV ONE (13:11)
[2025-01-04] MEDS: TRANEXAMIC ACID 10 ML ONE (13:15)
--- NOTE | 2025-01-04 13:22 | DVHOP2 ---
Operative Report DATE OF OPERATION: 01/04/25 PREOPERATIVE DIAGNOSES: Term IOL ,FAILED INDUCTION,FTP,MECONIUM POSTOPERATIVE DIAGNOSES: SAME SURGEON: Christina Sellers D.O./SY ANESTHESIOLOGIST: GLORIA TYPE OF ANESTHESIA : -EPIDURAL CONSENT: The patient was informed of the risks and benefits of the procedure. The patient was informed of the risks and benefits of the procedure. These include but are not limited to , complications of anesthesia, postoperative infection, incomplete relief of symptoms, recurrence of symptoms, damage to blood vessels, nerves and tendons, deep venous thrombosis, pulmonary embolism and possible need for repeat surgery in the future. FINDINGS: Baby [F] with Apgars of [8] and [9]. Grossly normal appearing tubes and ovaries.MECONIUM PROCEDURES: Primary low transverse section. PROCEDURE IN DETAIL: The patient was taken to the operating room. She already had an epidural in place. She was then placed in supine position with a leftward tilt. A Pfannenstiel skin incision was made 2 cm above the symphysis pubis. This incision was carried to the underlying layer of fascia. The fascia was nicked in the midline. The incision was extended laterally. The superior aspect of the fascial incision was grasped and elevated. The same procedure was done to the inferior aspect of the fascial incision. The rectus muscles were then in the midline. Peritoneum was identified and entered. Peritoneal incision was extended superiorly and inferiorly with good visualization of the bladder. Bladder blade was inserted. Vesicouterine peritoneum was identified and entered. Lower uterine segment was incised in a transverse fashion. The was delivered from vertex presentation. Infant was baby [F] with Apgars [8] and [9]. Placenta was then removed manually. Uterus was exteriorized and cleared of all clots and debris. The incision was repaired using 0 Vicryl in a double-layered fashion. No bleeding was noted. Uterus was then returned to the abdomen. The gutters were cleared off all clots and debris. Peritoneum was closed using 0 Vicryl, fascia was closed using 0 Maxon, and skin was closed using sergio. The patient tolerated the procedure well. She was taken to the recovery room in stable condition. ESTIMATED BLOOD LOSS: Estimated blood loss was noted to be 900 mL. Visit Coding OBGYN Date of Service: Jan 04, 2025 Billing Provider: CHRISTINA SELLERS DO STONECUTTER Common Visit Codes: [id number] INP/OBS CARE (HIGH) STONECUTTER Procedure Codes: [id number] DELIVERY ONLY CHRISTINA SELLERS DO Jan 04, 2025 13:22
[2025-01-04] MEDS ORDERED: MORPHINE SULFATE 4 MG/ML SYR/VIAL IV PRN (16:00)
[2025-01-04] MEDS ORDERED: GENTAMICIN PER PHARMACY 0 ML IV SCH (20:15)
[2025-01-04] MEDS: GENTAMICIN SULFATE 360 MG in D5W 5% 100 ML IV SCH (21:45)
[2025-01-04 22:05] LABS: Hematocrit 30.5 % (36.0-46.0); Hemoglobin 10.4 g/dL (12.2-16.2); Mean Corpuscular Hemoglobin 31.3 pg (28.0-32.0); Mean Corpuscular Volume 91.5 fL (80.0-100.0); Nucleated Red Blood Cells % 0.0 %
[2025-01-04] MEDS: CLINDAMYCIN 900MG IV 50 ML IV SCH (23:12)
[2025-01-05] VITALS (17 sets, daily range): BP systolic 87–115; BP diastolic 51–67; PULSE 83–111; RESP 18–20; TEMP 97.4–99.3; O2SAT 93–98
--- NOTE | 2025-01-05 00:12 | DVHPN2 ---
Progress Note Date Seen: Jan 05, 2025 Subjective Starla is feeling in good spirits about her recovery and her delivery. She is sitting up on bed with legs dangling. Primary RN at bedside. FOB swaddling baby and placing her comfortably in bassinet. Subjective: -Lochia minimal -Patient had some juice and water and feels ready to try solid food. -Green still in place. -Pain relieved with oral medication PRN -Passing flatus but no BM yet. - w/o problem -Patient sometimes will feel warm or like her heart is racing, but mostly asymptomatic vital signs Vital Sign Date Time Temp Pulse Resp B/P (MAP) Pulse Ox O2 Delivery O2 Flow Rate FiO2 01/04/25 22:00 99.6 116 18 98/57 (71) 97 99.6 01/04/25 19:30 Room Air 01/04/25 13:45 0 01/04/25 13:45 100 Total Intake and Output 01/04/25 01/04/25 01/05/25 15:00 23:00 07:00 Intake Total 10 ml Output Total 100 ml 225 ml Balance -90 ml -225 ml medications Current Medications Medications Dose Ordered Sig/Gabrielle Route Start Time Stop Time Status Last Admin Dose Admin Lactated Ringer's 1,000 ml @ 125 mls/hr Q8H IV 01/02/25 19:15 01/04/25 17:35 125 MLS/HR Witch Pretty 1 pad PRN PRN TOP 01/02/25 19:15 01/02/25 21:17 1 PAD Sodium Lauryl Sulfate 240 ml PRN PRN TOP 01/02/25 19:15 01/02/25 21:17 240 ML Benzocaine 1 applic PRN PRN TOP 01/02/25 19:15 01/02/25 21:17 1 APPLIC Lidocaine HCl 40 ml ONCE PRN IJ 01/02/25 19:15 Cancel Famotidine 20 mg Q12HR PRN IV 01/02/25 21:15 01/03/25 00:39 20 MG Calcium Carbonate 1,000 mg Q6HP PRN PO 01/02/25 21:15 01/03/25 03:13 1,000 MG Terbutaline Sulfate 0.25 mg ONCE PRN SC 01/03/25 16:45 Cancel Ondansetron HCl 4 mg Q4HP PRN IV 01/04/25 12:45 Cancel Morphine Sulfate 2 mg Q4HP PRN IV 01/04/25 16:00 Ondansetron HCl 4 mg Q4HP PRN IV 01/04/25 16:00 Acetaminophen 1,000 mg Q8HPRN PRN IV 01/04/25 16:00 01/05/25 14:01 Clindamycin Phosphate 50 ml @ 50 mls/hr Q8HR IV 01/04/25 22:00 01/04/25 23:12 50 MLS/HR Gentamicin Sulfate 0 ml @ 0 mls/hr PER PHARMACY IV 01/04/25 20:15 Gentamicin Sulfate 360 mg/ Dextrose 109 ml @ 109 mls/hr DAILY@2100 IV 01/04/25 21:00 01/04/25 21:45 109 MLS/HR laboratory and microbiology Laboratory Tests 01/04/25 21:46 01/02/25 19:24 Test 01/02/25 19:24 Range/Units Serum Glucose 78 74-106 mg/dL Objective Objective: -A&O x4. No apparent distress. Affect appropriate -Labile temperature (fever during labor), other VSS -Chest: heart and lung sounds normal. -Breasts: Nipples intact w/o cracks or soreness -Abdomen: normal BS, soft, non-tender, no rebound or guarding, fundus firm @ U- 1, -Lower abdominal incision site with dressing dry and intact. No edema, erythema or induration -Extremities: no edema or tenderness Problems(with codes): (1) S/P section (2) Endometritis Assessment/Plan Assessment 29 yo now Post operative & ppd # 1 s/p Primary Section for arrest of active phase of labor, doing well. Blood Type: A+ Breast feeding Rubella Immune Suspected endometritis Plan: -Continue pain management with oral medications as previously ordered -Increase fluid intake and fiber in diet to promote regular bowel movements, Laxative PRN. OK to eat regular diet. Encouraged patient to eat sooner for ERAS -Discussed change in antibiotic regimen for suspected chorioamnionitis-> endometritis. Reviewed risks/benefits of clindamycin and gentamicin. Answered all patient questions and concerns. Patient verbalized understanding -Green to be d/c before 0100. Patient to ambulate at that time as well -Educated patient on self-care -Continue routine care Plan discussed with: Patient, Spouse Visit Coding OBGYN Date of Service: Jan 05, 2025 Billing Provider: HAYLEY BENTLEY CNM AIR CONDITIONING TECHNICIAN Common Visit Codes: [id number] INP/OBS CARE(MOD) HAYLEY BENTLEY CNM Jan 05, 2025 00:12
[2025-01-05] MEDS: ACETAMINOPHEN IV 1000 MG/100ML (10MG/ML) IV PRN (00:28)
[2025-01-05] MEDS ORDERED: ACETAMINOPHEN 325 MG TAB PO PRN (03:45)
[2025-01-05] MEDS ORDERED: HYDROcodone-ACET 5/325MG TAB PO PRN (03:45)
[2025-01-05] MEDS: SIMETHICONE 80 MG CHEWABLE TABLET PO SCH (06:00)
--- NOTE | 2025-01-05 07:03 | POSTOP ---
Post-Operative Note Post-Operative Note Preop Diagnosis term preg,iol,ftp,meconium Postop Diagnosis: same Operation performed pltcs Specimen baby girl,apgars 8-9,mec Anesthesia: Regional Anesthesiologist: cody Blood Loss(fluid mgmt) 900 Surgeon Raz Sellers Implant na Complications & Mgmt none Date 01/05/25 Time 07:02 Visit Coding OBGYN Date of Service: Jan 04, 2025 Billing Provider: RAZ SELLERS DO LAP CHECKER Common Visit Codes: [id number] INP/OBS CARE (HIGH) LAP CHECKER Procedure Codes: [id number] DELIVERY ONLY RAZ SELLERS DO Jan 05, 2025 07:03
[2025-01-05] MEDS ORDERED: IBUP-1456 PO (07:05)
[2025-01-05] MEDS ORDERED: DOCU-94 PO (07:05)
[2025-01-05] MEDS ORDERED: HYDR-4072 PO (07:05)
[2025-01-05] MEDS ORDERED: CEPH500T PO (07:05)
[2025-01-05 08:57] LABS: Hematocrit 30.9 % (36.0-46.0); Hemoglobin 10.5 g/dL (12.2-16.2); Mean Corpuscular Hemoglobin 31.3 pg (28.0-32.0); Mean Corpuscular Volume 92.2 fL (80.0-100.0); Nucleated Red Blood Cells % 0.0 %
[2025-01-05] MEDS: IBUPROFEN 800 MG TAB PO PRN (11:19)
[2025-01-05] MEDS: DOCUSATE SOD 100 MG CAP PO SCH (11:21)
[2025-01-05] MEDS: HYDROcodone-ACET 5/325MG TAB PO PRN (12:40)
[2025-01-05] MEDS: CEPHALEXIN 250 MG CAP PO SCH (17:50)
[2025-01-06] MEDS: MILK OF MAGNESIA 30ML SUSP PO ONE (01:05)
[2025-01-06 03:00] VITALS: BP 106/68; PULSE 98; RESP 20; TEMP 99; O2SAT 98
--- NOTE | 2025-01-06 04:16 | DVHPN2 ---
Progress Note Date Seen: Jan 06, 2025 Subjective Starla is sitting up on the edge of the bed upon entry to the room. FOB is with baby by the bassinet. Patient states she began feeling abdominal pain at 1900 and was worried she was regressing. Subjective: -Lochia minimal -Regular diet well tolerated. -Ambulating and voiding well w/o feeling dizzy or lightheaded -Pain relieved with oral medication PRN -Passing flatus but no BM yet. - w/o problem -Hoping to be able to go home today vital signs Vital Sign Date Time Temp Pulse Resp B/P (MAP) Pulse Ox O2 Delivery O2 Flow Rate FiO2 01/06/25 03:00 99.0 98 20 106/68 (81) 98 99.0 01/05/25 18:30 Room Air 0.0 01/04/25 13:45 100 Total Intake and Output 01/05/25 01/05/25 01/06/25 15:00 23:00 07:00 Output Total 550 ml 800 ml Balance -550 ml -800 ml medications Current Medications Medications Dose Ordered Sig/Gabrielle Route Start Time Stop Time Status Last Admin Dose Admin Lactated Ringer's 1,000 ml @ 125 mls/hr Q8H IV 01/02/25 19:15 01/04/25 17:35 125 MLS/HR Jose Olsen 1 pad PRN PRN TOP 01/02/25 19:15 01/02/25 21:17 1 PAD Sodium Lauryl Sulfate 240 ml PRN PRN TOP 01/02/25 19:15 01/02/25 21:17 240 ML Benzocaine 1 applic PRN PRN TOP 01/02/25 19:15 01/02/25 21:17 1 APPLIC Lidocaine HCl 40 ml ONCE PRN IJ 01/02/25 19:15 Cancel Famotidine 20 mg Q12HR PRN IV 01/02/25 21:15 01/03/25 00:39 20 MG Calcium Carbonate 1,000 mg Q6HP PRN PO 01/02/25 21:15 01/03/25 03:13 1,000 MG Terbutaline Sulfate 0.25 mg ONCE PRN SC 01/03/25 16:45 Cancel Ondansetron HCl 4 mg Q4HP PRN IV 01/04/25 12:45 Cancel Ondansetron HCl 4 mg Q4HP PRN IV 01/04/25 16:00 Docusate Sodium 100 mg Q12HR PO 01/05/25 10:00 01/05/25 21:59 100 MG Dimethicone 80 mg QID PO 01/05/25 06:00 01/05/25 21:59 80 MG Ibuprofen 800 mg Q8HP PRN PO 01/05/25 03:45 01/05/25 23:43 800 MG Acetaminophen/ Hydrocodone Bitart 1 tab Q4HPRN PRN PO 01/05/25 03:45 01/05/25 21:59 1 TAB Acetaminophen 650 mg Q4HP PRN PO 01/05/25 03:45 Cephalexin 500 mg Q6HR PO 01/05/25 18:00 01/05/25 23:43 500 MG laboratory and microbiology Laboratory Tests 01/05/25 08:09 01/02/25 19:24 Test 01/02/25 19:24 Range/Units Serum Glucose 78 74-106 mg/dL Objective Objective: -A&O x4. No apparent distress. Affect appropriate -Afebrile, VSS -Chest: heart and lung sounds normal. -Breasts: Nipples intact w/o cracks or soreness -Abdomen: normal BS, soft, non-tender, no rebound or guarding, fundus firm @ U- 1, -Lower abdominal incision site with dressing dry and intact. No edema, erythema or induration -Extremities: no edema or tenderness Problems(with codes): (1) S/P section Assessment/Plan Assessment: 29 yo now Post operative & ppd #2 s/p Primary Section for arrest of active phase of labor, doing well. Blood Type: A+ Breast feeding Rubella Immune Endometritis Plan: -IV antibiotics clinda and gent discontinued as patient is 24 hours afebrile. Patient now on PO keflex per Dr Sellers -Discussed expectations with patient and balancing activity with rest. Uterus may cramp or bleed more if over exertion occurs. Constipation may also cause additional cramping. Options discussed of increasing pain medication dosing or taking MOM to stimulate bowels. Patient would like to try MOM and prune juice first. -Continue pain management with oral medications as previously ordered -Increase fluid intake and fiber in diet to promote regular bowel movements, Laxative PRN -Educated patient on self-care and warning signs to watch for, including PPH, PPD, infection, and pre-eclampsia -Continue routine care Plan discussed with: Patient, Spouse Visit Coding OBGYN Date of Service: Jan 06, 2025 Billing Provider: HAYLEY BENTLEY CNM [employer] Common Visit Codes: [id number] INP/OBS CARE(HIGH) HAYLEY BENTLEY CNM Jan 06, 2025 04:15
--- NOTE | 2025-01-06 04:18 | DVHDS2 ---
Obstetrics Discharge Summary Obstetrics Discharge Summary Date of Admission: Jan 02, 2025 Date of Discharge: Jan 06, 2025 Reason For Admission: Induction of Labor Intrapartum Procedures: (Low Cervical Transverse) Procedures: Antibiotics Discharge Diagnosis: Term -Delivered Discharge Information: Activity (Unrestricted. Advance as tolerated. Balance activities with rest periods. No heavy lifting, pushing or straining. Pelvic rest x 6 weeks), Diet (Routine), Medications (See Orders and Med List from MD), Instructions (Routine), Discharge to (Home), Accompanied by (partner), Discarge date (01/06/2025) Discharge Care Plan Instructions - self care instructions given - emergency signs and symptoms including but not limited to pre-eclampsia precautions and signs of infection, PPH & of PPD reviewed with patient. -Follow up with OB Provider in 1 week for incision check Visit Coding OBGYN Date of Service: Jan 06, 2025 Billing Provider: HAYLEY BENTLEY CNM FIBER ANALYST Common Visit Codes: [id number]/OBS DISCH DAY >30MIN HAYLEY BENTLEY CNM Jan 06, 2025 04:18
[2025-01-06 07:30] VITALS: BP 115/73; PULSE 103; RESP 18; TEMP 97.8; O2SAT 96
[2025-01-06] MEDS: HYDROcodone-ACET 5/325MG TAB PO PRN (10:29)
[2025-01-06 11:00] VITALS: BP 112/62; PULSE 70; RESP 16; TEMP 97.8; O2SAT 97
[2025-01-06 13:03] VITALS: BP 112/62; PULSE 70; RESP 16; TEMP 97.8; O2SAT 97
== END 2025-01-06 13:30 | disposition home or self-care (01) | DRG 786 ==
LOC: LDRP 18:20
PROVIDERS: ADMIT Obstetrics & Gynecology; ATTEND Obstetrics & Gynecology
PROC: 10D00Z1 Extraction of Products of Conception, Low, Open Approach (ICD-10-PCS; principal; 2025-01-05)
DX: O48.0 Post-term pregnancy (principal); O75.3 Other infection during labor; O61.9 Failed induction of labor, unspecified; O62.1 Secondary uterine inertia; O77.0 Labor and delivery complicated by meconium in amniotic fluid; O62.0 Primary inadequate contractions; Z3A.40 40 weeks gestation of pregnancy; Z37.0 Single live birth
CPT/HCPCS: 36415; 59025; 59200; 80053; 80170; 80307; 81001; 82565; 85025; 85610; 85730; 86780; 86803; 86850; 86900; 86901; 94760; 94762; 96360; 96361; 96365; 96366; 96374; 96375; A4344; G0378; J0131; J2003; J2405; J2590; J3490; J7060